=== PATIENT | male | born 2000 | race Caucasian/White ===

== ENCOUNTER 2022-02-09 11:00 | Emergency (ER) | payer BC, SELFPAY ==
--- NOTE | 2022-02-09 11:00 | ED.NURSE ---
Pt brought by police into ambulance garage. Per PD, pt had been belligerent and uncooperative on scene. Security met police in the garage with restraint chair. Pt was handcuffed in front by police on arrival. Pt was placed in restraint chair with just shoulder straps applied. Pt brought into room 3.
--- NOTE | 2022-02-09 11:23 | ED_ITS ---
HPI - General Adult General Chief complaint: Alcohol/Intoxication Stated complaint: mental health Time Seen by Provider: 02/09/22 11:23 History of Present Illness HPI narrative: This 21-year-old male is brought in by law enforcement. It is uncertain yet whether he is under arrest. He is intoxicated with alcohol and there was concern that he may be suicidal. Please states that he was wandering on a a road [place] and had made some comments about suicidality to family members. He arrives very agitated with loud cursing. He denies using any prescription medications. He also denies using any other street drugs. He has no allergies. Related Data Home Medications Medication Instructions Recorded Confirmed No Known Home Medications 02/09/22 02/09/22 Allergies Allergy/AdvReac Type Severity Reaction Status Date / Time No Known Drug Allergies Allergy Verified 02/09/22 11:25 Review of Systems Status of ROS: Reports: 10 or more systems reviewed and unremarkable except as noted in History and below Narrative: Unable to obtain due to uncooperation. Exam Narrative: Exam Narrative: Constitutional: Well-developed, well-nourished. Agitated, in restraints. HEENT: Normocephalic, atraumatic. Neck: Normal range of motion. Nontender. Supple. Heart: Intact distal pulses. Lungs: No chest discomfort. No wheezes, rhonchi, or rales. Abdomen: Nontender. Back: Normal range of motion. Extremities: Normal range of motion. No injury. Skin: Intact. No rash. Warm. No erythema or pallor. Neurologic: No altered sensation. No weakness. Alert and oriented. Psychiatric: Intoxicated with alcohol. Uncooperative. Nursing notes and vitals signs are reviewed. Const: Vital Signs, click to edit/add: Vital Signs - 24 hr 02/09/22 11:25 02/09/22 11:41 Pulse Rate [Right Pulse Oximeter] 128 H 124 H Respiratory Rate 18 18 Blood Pressure [Le ft Upper Arm] 133/109 H 140/100 H Pulse Oximetry 97 99 Course Vital Signs Vital signs: Initial Vital Signs Pulse Rate 128 H 02/09/22 11:25 Respiratory Rate 18 02/09/22 11:25 Blood Pressure 133/109 H 02/09/22 11:25 Blood Pressure Mean 117 02/09/22 11:25 Blood Pressure Position Sitting 02/09/22 11:25 Pulse Oximetry 97 07/17/22 11:25 Oxygen Delivery Method 02/09/22 11:25 Vital Signs Pulse Rate 128 H 02/09/22 11:25 Respiratory Rate 18 02/09/22 11:25 Blood Pressure 133/109 H 02/09/22 11:25 Pulse Oximetry 97 02/09/22 11:25 Pulse Rate 124 H 02/09/22 11:41 Respiratory Rate 18 02/09/22 11:41 Blood Pressure 140/100 H 02/09/22 11:41 Pulse Oximetry 99 02/09/22 11:41 Medical Decision Making MDM Narrative Medical decision making narrative: This 21-year-old is brought in by police and he is under arrest. The patient is mostly uncooperative and is restrained in a chair. The times he is very loud with cursing. The police are willing to take him to their facility as he is under arrest. He is medically cleared to do this. The patient did receive an intramuscular injection of Zyprexa 10 mg. Lab Data Labs: Lab Results 02/09/22 Range/Units 11:38 Ethyl Alcohol 0.26 H (0.01-0.03) % Discharge Plan Discharge Clinical Impression: Alcoholic intoxication Condition: Unchanged Additional Instructions: This patient is medically cleared to be discharged into police custody. Prescriptions: No Action No Known Home Medications 0RF Follow Up/Referrals: Jp Salmeron MD [Primary Care Provider] - Stand Alone Forms: [facility] Info Instructions
[2022-02-09 11:25] VITALS: BP 133/109; PULSE 128; RESP 18; O2SAT 97; BMI 24.4
--- NOTE | 2022-02-09 11:30 | PC.NURSE ---
Pt unhappy with infrastructure security architect presence. Pt yelling at infrastructure security architect. Substation Designer had infrastructure security architect step out of the room, pt able to be verbally deescalated somewhat. Pt agreeable to allowing vitals monitoring at this time. Substation Designer provided pt with cup of water, pt now states he would be cooperative with staff as long as security was not present. Pt agreeable to blood draw by lab.
[2022-02-09 11:41] VITALS: BP 140/100; PULSE 124; RESP 18; O2SAT 99
[2022-02-09 11:55] VITALS: BP 140/89; PULSE 116; RESP 18; O2SAT 96
--- NOTE | 2022-02-09 11:55 | ED.NURSE ---
At this time, pt was handcuffed in front and only shoulder straps on the restraint chair had been applied. Pt attempted to slide out of restraint chair and had his hands above his head, and was partially hanging off the restraint chair. Pt moved back up into a sitting position on the restraint chair. Police handcuffs were removed and all restraints on restraint chair were applied to pt. notified.
[2022-02-09 12:04] LABS: Ethanol* 0.26 % (0.01-0.03)
[2022-02-09 12:15] VITALS: BP 134/82; RESP 18
--- NOTE | 2022-02-09 12:15 | ED.NURSE ---
Per [place] [employer]ating Unit Mechanic Jake, pt in custody and to go to group home. Per Officer Jake, group home stated they would still accept pt if pt was given medication to sedate him.
[2022-02-09] MEDS: OLANZapine 5 MG/ML inj 10 MG IM (12:35)
--- NOTE | 2022-02-09 12:35 | ED.NURSE ---
Pt complaining about being in restraints, pt yelling at staff and police. Pt demanding to be allowed to make a phone call to his father. MD Watson in to speak with pt, pt swearing and uncooperative with MD. Pt states I'll be cooperative with whatever you want me to do. Pt then immediately refused to allow television writer to apply pulse oximeter or to accept oral medications MD offered. Pt yelling at television writer, stating he will canelo me. Pt states to television writer: I hope you are ready to get fucked in the ass with no lube because you don't have 3 million dollars!, Are you fucking retarded?, everyone in my family is rich except me and you are gonna get your ass fucking sued!, and you are a dumb fucking bitch!. Pt thrashing in restraint chair, attempting to tip chair over. ordered IM medication. Senior Medical Director explained to pt he would be getting IM med to help him calm down. Police and security in to hold pt still in restraint chair while meds given. Senior Medical Director administered IM med to pt R thigh. Pt continued yelling at staff and police. Pt yelling at television writer that all you're good for is licking fucking nicky. Senior Medical Director exited room.
--- NOTE | 2022-02-09 12:54 | ED.NURSE ---
Pt continuing to thrash in restraint chair, screaming at police officers who remained in room with pt. Pt swearing and yelling loudly enough to be heard throughout the ER. Per Inside Sales Associate monitoring camera, pt spit at police officers who were in the room.
--- NOTE | 2022-02-09 12:58 | ED.NURSE ---
Inspector And Clipper attempted to check vitals on pt, pt refusing to allow monitoring equipment to be reapplied. Pt pulls arm away from BP cuff and refuses pulse ox. Pt continuing to yell and swear at typewriter assembler and police.
[2022-02-09 13:10] VITALS: BP 116/58; PULSE 114; RESP 16; TEMP 36.4; O2SAT 94
--- NOTE | 2022-02-09 13:20 | ED.NURSE ---
Pt brought to ambulance bay in restraint chair. Pt now calm and resting. Vitals checked prior to departure from ED, VSS. Law Enforcement restraints applied to pt in ambulance garage, pt released from restraint chair and placed in back of squad car. Pt did still swear at and insult staff as he was placed into the police car.
[2022-02-09 13:25] VITALS: BP 116/58; PULSE 114; TEMP 36.4
== END 2022-02-09 13:25 | disposition home or self-care (01) ==
PROVIDERS: Emergency Provider Emergency Medicine Emergency Medical Services; PCP Pediatrics
DX: F10.129 Alcohol abuse with intoxication, unspecified (principal)
CPT/HCPCS: 36415; 82077; 96372; 99283; 99284; S0166

== ENCOUNTER 2023-01-06 13:41 | Emergency (ER) | payer OTHER, SELFPAY ==
[2023-01-06 13:47] VITALS: BP 145/89; PULSE 84; RESP 16; TEMP 36.8; O2SAT 99; BMI 23.7
--- NOTE | 2023-01-06 14:04 | ED_ITS ---
HPI - General Adult General Chief complaint: Extremity Pain/Injury, Upper Stated complaint: R shoulder injury Time Seen by Provider: 01/06/23 13:45 History of Present Illness HPI narrative: 22-year-old male coming in today complaining of shoulder pain. He states that he was on the ground working to pull an engine out of a car when the pain started. He was lying on his side in using both arms outstretched in front of him pulling towards his body. He had to tug on the edge of multiple times before bodies to when he finally got it out he felt a throbbing pain in his upper lateral back that radiated into his shoulder and arm on the right side. This occurred about an hour ago. He has not taken anything. He denies any other injury. Related Data Home Medications Medication Instructions Recorded Confirmed No Known Home Medications 02/09/22 02/09/22 Allergies Allergy/AdvReac Type Severity Reaction Status Date / Time No Known Drug Allergies Allergy Verified 01/06/23 13:46 Review of Systems Status of ROS: Reports: 6 or more systems reviewed and unremarkable except as noted in History and below [facility] Social History Smoking Status: Current every day smoker Do you use any of these nicotine containing products: E-Cigarettes Second hand tobacco smoke exposure: No Non-prescribed substance use: marijuana (any form) Exam Narrative: Exam Narrative: Well-nourished well-developed patient in no acute distress. Patient has very dirty skin from his work. Alert and oriented. Answers questions appropriately. Mood and affect are appropriate. Thoughts are goal oriented and rational. No tangential or magical thinking noted. Patient speaks in full sentences without needing to catch his breath. HEENT: Normocephalic atraumatic. Pupils are equally round reactive to light. Extraocular muscles are intact. Conjunctivae are moist without any icterus noted. Moist mucous membranes. Neck is soft. Cardiovascular: Heart is regular rate and rhythm. Lungs: Clear to auscultation bilaterally. Patient takes deep breaths without any discomfort. Skin: Well perfused without any obvious rashes. Back: Has normal appearance. Patient has no tenderness to palpation of the cervical thoracic or lumbar spine. He has a lot of discomfort just around the scapula on the right specifically around the muscle groups including teres major and latissimus dorsi. Extremities: Shoulders have normal contours. He has full range of motion of both shoulders. Normal arc. Lift-off is normal on the right. No signs of impingement. He is strength is normal on the right. He he has no pain with flexion extension at the elbow. Strength is normal there as well without any evidence of muscle tears. 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 Const: Vital Signs, click to edit/add: Vital Signs - 24 hr 01/06/23 13:47 Temperature 98.3 F Pulse Rate [Right Pulse Oximeter] 84 Respiratory Rate 16 Blood Pressure [Ri ght Upper Arm] 145/89 H Pulse Oximetry 99 Oxygen Delivery Me thod Room Air Course Vital Signs Vital signs: Initial Vital Signs Temperature 98.3 F 01/06/23 13:47 Temperature Source Temporal Artery Scan 01/06/23 13:47 Pulse Rate 84 01/06/23 13:47 Pulse Rhythm Regular 01/06/23 13:47 Pulse Strength 3+ Normal 01/06/23 13:47 Respiratory Rate 16 01/06/23 13:47 Blood Pressure 145/89 H 01/06/23 13:47 Blood Pressure Mean 107 H 01/06/23 13:47 Blood Pressure Position Sitting 01/06/23 13:47 Pulse Oximetry 99 01/06/23 13:47 Oxygen Delivery Method Room Air 01/06/23 13:47 Vital Signs Temperature 98.3 F 01/06/23 13:47 Pulse Rate 84 01/06/23 13:47 Respiratory Rate 16 01/06/23 13:47 Blood Pressure 145/89 H 01/06/23 13:47 Pulse Oximetry 99 01/06/23 13:47 Oxygen Delivery Method Room Air 01/06/23 13:47 Temperature 98.3 F 01/06/23 13:47 Pulse Rate 84 01/06/23 13:47 Respiratory Rate 16 01/06/23 13:47 Blood Pressure 145/89 H 01/06/23 13:47 Pulse Oximetry 99 01/06/23 13:47 Oxygen Delivery Method Room Air 01/06/23 13:47 Medical Decision Making MDM Narrative Medical decision making narrative: 22-year-old male with back pain after pulling a heavy object. Feels like he is having muscle spasm in the back as well. We discussed ibuprofen, rest for a couple days, ice and heat to the area. Follow-up as needed and certainly if he is getting worse. Patient was in agreement and had no other questions. Discharge Plan Discharge Clinical Impression: Muscle spasm Patient Disposition: Home, Self-Care Condition: Stable Additional Instructions: Okay to use ibuprofen 600 mg 3 times (every 6-8 hours) a day with meals. Okay to ice the sore area in the back today for 20 minutes at a time, up to 4 times. Do not apply ice directly to skin. Subsequently okay to use heat to the area, do not apply heat directly to skin. Recommend taking a few days off work. Prescriptions: No Action No Known Home Medications Follow Up/Referrals: Jp Salmeron MD [Primary Care Provider] - Stand Alone Forms: [facility] Info Instructions
== END 2023-01-06 14:18 | disposition home or self-care (01) ==
LOC: ED 14:15
PROVIDERS: Emergency Provider Family Medicine
DX: M62.838 Other muscle spasm (principal); X50.0XXA Overexertion from strenuous movement or load, initial encounter
CPT/HCPCS: 99282; 99283